=== PATIENT | male | born 1995 | race Caucasian/White ===

== ENCOUNTER 2018-01-20 15:11 | Emergency (ER) | payer SELFPAY ==
[2018-01-20] MEDS ORDERED: PERCOCET 5/325 PO ONE (15:57)
[2018-01-20] MEDS ORDERED: NACL 0.9% 500 ML IR ONE (16:11)
[2018-01-20] MEDS ORDERED: BOOSTRIX IM ONE (16:13)
[2018-01-20] MEDS ORDERED: XYLOCAINE 1%/ EPI 1:100,000 INFILTRATI ONE (16:13)
[2018-01-20] MEDS ORDERED: SUBLIMAZE IV ONE ×3 (16:13→17:00)
--- NOTE | 2018-01-20 16:59 | XRay Report ---
FINAL REPORT EXAM: XR SHOULDER 1V LT HISTORY: laceration TECHNIQUE: Single AP view of the left shoulder PRIORS: None. FINDINGS: There is no evidence of acute fracture or dislocation. Joint spaces are maintained and bony mineralization is normal. Soft tissues are unremarkable. IMPRESSION: No acute abnormality identified in the left shoulder.
[2018-01-20] MEDS ORDERED: TRIPLE ANTIBIOTIC TP ONE (17:26)
--- NOTE | 2018-01-20 17:26 | Emergency Department Report ---
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 Was cutting tile and hit his arm into the tile cutter. Occurred about 1 hour prior to arrival. Unknown last tdap. able to move and feel his hand. No other complaints or injuries. Place: work Patient Tetanus UTD: No Context: accidental Associated Symptoms: none - Related Data Previous Rx's Medication Instructions Recorded Last Taken Type Cephalexin [Keflex] 500 mg PO Q6HR #27 capsule 01/20/18 Unknown Rx HYDROcodone/ACETAMINOPHEN 1 each PO Q6H PRN #10 tablet 01/20/18 Unknown Rx [Hydrocodon-Acetaminophen 5-325] Allergies Allergy/AdvReac Type Severity Reaction Status Date / Time No Known Allergies Allergy Unverified 01/20/18 15:16 ED Review of Systems ROS: Stated complaint: LACERATION Other details as noted in HPI Comment: All other systems reviewed and negative ED Past Medical Hx - Past Medical History Previous Medical History?: No - Surgical History Past Surgical History?: No - Social History Smoking Status: Unknown if ever smoked - Medications Home Medications: Home Medications Medication Instructions Recorded Confirmed Last Taken Type Cephalexin [Keflex] 500 mg PO Q6HR #27 capsule 01/20/18 Unknown Rx HYDROcodone/ACETAMINOPHEN 1 each PO Q6H PRN #10 tablet 01/20/18 Unknown Rx [Hydrocodon-Acetaminophen 5-325] ED Physical Exam - General Limitations: Language Barrier General appearance: alert, in no apparent distress - Head Head exam: Present: atraumatic, normocephalic - Eye Eye exam: Present: normal appearance, EOMI - ENT ENT exam: Present: normal exam, mucous membranes moist - Neck Neck exam: Present: normal inspection, full ROM. Absent: tenderness, meningismus - Respiratory Respiratory exam: Present: normal lung sounds bilaterally. Absent: respiratory distress - Cardiovascular Cardiovascular Exam: Present: regular rate, normal rhythm - GI/Abdominal GI/Abdominal exam: Present: soft. Absent: distended, tenderness - Extremities Exam Extremities exam: Present: normal inspection, full ROM, other (4cm laceration to left upper arm over deltoid. Full ROM L shoulder. Brisk cap refill. nerveis intact in LUE x 3 motor and sensory. Visible lacearted mucle belly. No visible or palpable bone or cartiledge. ) - Back Exam Back exam: Present: normal inspection. Absent: tenderness - Neurological Exam Neurological exam: Present: alert, altered. Absent: motor sensory deficit - Psychiatric Psychiatric exam: Present: normal affect, normal mood - Skin Skin exam: Present: warm, dry ED Course Vital Signs 01/20/18 01/20/18 01/20/18 15:35 16:45 16:56 Temperature 98.4 F Pulse Rate 93 H Respiratory 16 16 16 Rate Blood Pressure 117/68 [Right] O2 Sat by Pulse 98 Oximetry 01/20/18 01/20/18 17:03 17:05 Temperature Pulse Rate Respiratory 16 16 Rate Blood Pressure [Right] O2 Sat by Pulse Oximetry - Laceration /Wound Repair Left Upper Arm Wound Location: upper extremity Wound Length (cm): 4 Wound's Depth, Shape: into muscle, contused tissue Wound Explored: clean Irrigated w/ Saline (ccs): 500 Betadine Prep?: Yes Anesthesia: Lidocaine w/ Epi Volume Anesthetic (ccs): 4 Wound Repaired With: sutures Suture Size/Type: 4:0 Number of Sutures: 15 Layer Closure?: Yes Deep Layer Suture Size/Type: 4:0 Number Deep Layer Sutures: 8 Sterile Dressing Applied?: Yes ED Medical Decision Making - Radiology Data FINAL REPORT EXAM: XR SHOULDER 1V LT HISTORY: laceration TECHNIQUE: Single AP view of the left shoulder PRIORS: None. FINDINGS: There is no evidence of acute fracture or dislocation. Joint spaces are maintained and bony mineralization is normal. Soft tissues are unremarkable. IMPRESSION: No acute abnormality identified in the left shoulder. - Medical Decision Making Mr Youssef is a 22 year-old man who presents after laceration sustained to left upper arm. Unknown last tdap. ordered and administered. No neuro complaints. Exam with deep laceration to proximal left upper arm. Involved muscle belly of deltoid. Small arterial bleed stopped with direct pressure. NV intact distally. XR without evidence of FB. No palpable or visible FB, cartilage or bone. Closed muslce belly with 4 sutures, 4-0 vicryl. Closed subq fascia with 4 4-0 vicrl sutures. closed skin with 7 4-0 prolene sutures. Well approximated. some bruising. bacitracin and pressure dressing applied. home with keflex 500mg qid x 7 days. sling. Pain meds. Plan to have sutures removed in 7 days. given referral to orthopedic surgery for monday or monday. Given strict care instructions, return precautions. dc to home Critical care attestation.: If time is entered above; I have spent that time in minutes in the direct care of this critically ill patient, excluding procedure time. ED Disposition Clinical Impression: Laceration Disposition: DC-01 TO HOME OR SELFCARE Is pt being admited?: No Does the pt Need Aspirin: No Condition: Stable Instructions: Suture Care (ED), Laceration (ED) Prescriptions: Cephalexin [Keflex] 500 mg PO Q6HR #27 capsule HYDROcodone/ACETAMINOPHEN [Hydrocodon-Acetaminophen 5-325] 1 each PO Q6H PRN # 10 tablet PRN Reason: Pain , Severe (7-10) Referrals: AVANI ROSSI MD [Staff Physician] - 3-5 Days
[2018-01-20] MEDS ORDERED: KEFLEX PO ONE (17:46)
[2018-01-20] MEDS ORDERED: POLYSPORIN TP ONE (18:26)
[2018-01-20 18:45] VITALS: BP 122/65
== END 2018-01-20 18:48 | disposition home or self-care (01) ==
LOC: ED 15:11
DX: S41.112A Laceration without foreign body of left upper arm, initial encounter (principal); W27.8XXA Contact with other nonpowered hand tool, initial encounter; Y93.89 Activity, other specified; Y99.8 Other external cause status; Y92.89 Other specified places as the place of occurrence of the external cause
CPT/HCPCS: 12032; 73020; 90471; 90715; 99284; J3010; A6250